=== PATIENT | female | born 1940 | race Caucasian/White ===

== ENCOUNTER 2018-02-28 08:43 | Day surgery (SDC) | payer MEDICARE ==
[~2018-02-28 08:43] MED LIST: ALPR.25 PO; ATEN-100 PO; CLOP75TA PO; ECOT81TA2 PO; IMIT100T PO; LEVO50TA4 PO; LISI30TA44 PO; MAXZTAB PO; MEVA40TA PO
[2018-02-28] MEDS ORDERED: ceFAZolin 2 GM in NS 100 ML IV SCH (09:15)
[2018-02-28] MEDS ORDERED: POVIDONE IODINE 5% (ANTISEPSIS KIT) 4 APPLICATIONS EACH NARE SCH (09:15)
[2018-02-28] MEDS ORDERED: MUPIROCIN 2% OINT 1 APPLIC/GM SYR NASAL SCH (09:15)
[2018-02-28] MEDS ORDERED: CHLORHEXIDINE GLUCONATE 2 % 1 PACK (2 CLOTHS) TOPICAL SCH (09:15)
[2018-02-28] MEDS ORDERED: LOVA40TA PO (09:17)
[2018-02-28] MEDS ORDERED: LISI30TA4 PO (09:17)
[2018-02-28] MEDS ORDERED: ATEN25TA PO (09:17)
[2018-02-28] MEDS ORDERED: TRIA37.5 (09:17)
[2018-02-28] MEDS ORDERED: LEVO50TA53 PO (09:17)
[2018-02-28] MEDS ORDERED: ASPI-516 CHEW (09:17)
[2018-02-28] MEDS ORDERED: ALPR0.25 PO (09:17)
[2018-02-28] MEDS ORDERED: SUMA100T2 PO (09:17)
[2018-02-28] MEDS ORDERED: COZA100T PO (09:17)
[2018-02-28] MEDS ORDERED: CLOP75TA PO (09:17)
[2018-02-28] MEDS ORDERED: LIDOCAINE HCL 2% 50 ML VIAL ONE (09:18)
[2018-02-28] MEDS ORDERED: MIDAZOLAM HCL 5 MG/ML VIAL (1 ML) ONE (09:58)
--- NOTE | 2018-02-28 12:19 | MA ---
cc: Conner Mayes MD DATE: 02/28/2018 PROCEDURE PERFORMED: Implantation of a Biotronik loop recorder. INDICATION: Recurrent unexplained syncope. OPERATIVE NOTES: The patient was brought to the DOC unit in a fasting state after having signed informed consent. The left upper chest and left parasternal regions were prepped and draped as per policy. The left parasternal region was anesthetized with 1% lidocaine. An approximately 1.5 cm incision was made perpendicular to the left sternal border, approximately 2 fingerbreadths from the left sternal border. A Biotronik monitor loop recorder was implanted as per protocol. The small incision was closed using 3-0 Vicryl interrupted stitches in a single layer to close the subcutaneous tissue and then Steri-Strips to close the subcuticular tissue. There were no apparent, immediate complications. The patient tolerated the procedure well. CONCLUSIONS: Successful implantation of a loop recorder using a Biotronik BioMonitor device. MD RAMA Chen/TRINA , 12:03 PM , 12:18 PM MICHELLE
== END 2018-02-28 11:59 | disposition home or self-care (01) ==
LOC: HDIC 08:43 → HDOC 08:43
PROVIDERS: ATTEND Internal Medicine Cardiovascular Disease
DX: R55 Syncope and collapse (principal); I65.29 Occlusion and stenosis of unspecified carotid artery; I10 Essential (primary) hypertension; I25.10 Atherosclerotic heart disease of native coronary artery without angina pectoris; E78.5 Hyperlipidemia, unspecified; Z79.82 Long term (current) use of aspirin
CPT/HCPCS: 33282; C1764; J0690; J2250

== ENCOUNTER 2018-03-09 11:15 | Day surgery (SDC) | payer MEDICARE ==
[~2018-03-09] VITALS: Ht 154.9 cm; Wt 69.9 kg
[2018-03-09] VITALS (13 sets, daily range): BP systolic 118–216; BP diastolic 67–98; PULSE 58–77; RESP 16–18; TEMP 98.5; O2SAT 94–98
[~2018-03-09 11:15] MED LIST changes: -ALPR.25 PO; +ALPR0.25 PO; +ASPI-516 CHEW; -ATEN-100 PO; +ATEN25TA PO; +COZA100T PO; -ECOT81TA2 PO; -IMIT100T PO; -LEVO50TA4 PO; +LEVO50TA53 PO; +LISI30TA4 PO; -LISI30TA44 PO; +LOVA40TA PO; -MAXZTAB PO; -MEVA40TA PO; +SUMA100T2 PO; +TRIA37.5
[2018-03-09 11:58] LABS: AUTOMATED NEUTROPHIL # 2.2 TH/MM3 (1.8-7.7); BASOPHIL % 0.6 % (0.0-2.0); EOSINOPHIL # 0.2 TH/MM3 (0-0.4); EOSINOPHIL % 3.2 % (0.0-4.0); HEMATOCRIT 41.3 % (35.0-46.0); HEMOGLOBIN 13.8 GM/DL (11.6-15.3); LYMPH % 43.4 % (9.0-44.0); LYMPHOCYTE # 2.2 TH/MM3 (1.0-4.8); MEAN CELL VOLUME 90.2 FL (80.0-100.0); MEAN CORPUSCULAR HEMOGLOBIN 30.2 PG (27.0-34.0); MEAN CORPUSCULAR HGB CONC 33.5 % (32.0-36.0); MEAN PLATELET VOLUME 7.3 FL (7.0-11.0); MONO % 9.8 % (0.0-8.0); MONOCYTE # 0.5 TH/MM3 (0-0.9); PLATELET COUNT 268 TH/MM3 (150-450); RED BLOOD COUNT 4.58 MIL/MM3 (4.00-5.30); RED CELL DISTRIBUTION WIDTH 13.8 % (11.6-17.2); WHITE BLOOD COUNT 5.1 TH/MM3 (4.0-11.0)
[2018-03-09] MEDS ORDERED: PHENYLEPH/NS 1000 MCG/10 ML SYR IV ONE (12:00)
[2018-03-09] MEDS ORDERED: PROPOFOL 200 MG/20 ML AMP IV ONE (12:00)
[2018-03-09] MEDS ORDERED: GLYCOPYRROLATE 1 MG/5 ML SYRINGE IV PUSH ONE (12:00)
[2018-03-09 12:07] LABS: INTERNATIONAL NORMALIZED RATIO 1.1 RATIO; PROTHROMBIN TIME - PATIENT 10.7 SEC (9.8-11.6)
[2018-03-09 12:19] LABS: BICARBONATE 32.5 MEQ/L (21.0-32.0); CALCIUM 9.2 MG/DL (8.5-10.1); CREATININE 0.94 MG/DL (0.50-1.00)
[2018-03-09] MEDS ORDERED: VITA100T65 PO (12:19)
[2018-03-09] MEDS ORDERED: VITA250C3 CHEW (12:19)
[2018-03-09] MEDS ORDERED: MULTTAB67 PO (12:19)
[2018-03-09] MEDS ORDERED: CALCTAB98 PO (12:19)
[2018-03-09] MEDS ORDERED: OMEGCAP PO (12:19)
[2018-03-09] MEDS: NS 1000 ML IV SCH ×2 (13:00→18:03)
[2018-03-09] MEDS ORDERED: CHLORHEXIDINE GLUCONATE 2 % 1 PACK (2 CLOTHS) TOPICAL SCH (13:15)
[2018-03-09] MEDS ORDERED: MUPIROCIN 2% OINT 1 APPLIC/GM SYR NASAL SCH (13:15)
[2018-03-09] MEDS ORDERED: CHLORHEXIDINE GLUCONATE 2 % 1 PACK (2 CLOTHS) TOPICAL PRN (13:15)
[2018-03-09] MEDS ORDERED: POVIDONE IODINE 5% (ANTISEPSIS KIT) 4 APPLICATIONS EACH NARE PRN (13:15)
[2018-03-09] MEDS ORDERED: ceFAZolin 2 GM PREMIX 50 ML IV SCH (13:15)
[2018-03-09] MEDS ORDERED: POVIDONE IODINE 5% (ANTISEPSIS KIT) 4 APPLICATIONS EACH NARE SCH (13:15)
[2018-03-09] MEDS ORDERED: VANCOMYCIN 1000 MG/NS 250 ML IV SCH ×2 (13:15)
[2018-03-09] MEDS ORDERED: SODIUM CHLORID 0.9% 500 ML IV PRN (13:15)
[2018-03-09] MEDS ORDERED: LACTATED RINGER'S 1000 ML IV PRN (13:15)
[2018-03-09] MEDS ORDERED: LIDOCAINE HCL 2% 20 ML VIAL ONE (13:35)
[2018-03-09] MEDS ORDERED: ALPRAZolam 0.25 MG TAB PO PRN (15:00)
[2018-03-09] MEDS ORDERED: traMADol HCL 50 MG TAB PO PRN (15:00)
--- NOTE | 2018-03-09 15:08 | CATHPROC ---
[facility] [place] HIS Report Study Information Study Number Admission Scheduled Start Study Start [id number] Mar 09 2018 11:15AM 03/09/2018 Mar 09 2018 1:22PM [place] [facility] Cardiac Pacer/ICD Admit Source Facility Department Other [facility] - [facility] [facility] Physician and Clinical Staff Initial MD Mayes, Conner Welding Robot Operator Shalonda Dumas RN Other Anesthesia, CLAIMS SUPERVISOR Recorder Heather Felix ,DESIREEN Scrub Jorge, Lizbet,TRADE ECONOMIST TECH2 Procedures Performed Procedure Lead Insertion Equipment Time Rn Clinical Trials Description Size Mfg Part Number Used/Scraped 14:08 BIOTRONIK LEAD, SOLIA 60 PRO MRI * [id number] Used 14:19 BIOTRONIK LEAD, SOLIA 60 53 PRO MRI * [id number] Used PACEMAKER, ENDORA 8 DR-T PRO 14:28 BIOTRONIK DDDR [id number] Used MRI [id number] 13:35 MEDLINE INDUSTRIES SUTURE, STRIP PLUS 1/2" * Used *[id number] 13:35 MEDLINE PACER ADHESIVE, MASTISOL 2/3CC 2/3CC 0523-48 Used 13:35 MEDLINE PACER NAVARRO, LIMB * 2530 *[id number] Used [id number] 13:35 MEDLINE PACER PACK, PACER CUSTOM * Used *[id number] 13:35 MEDLINE PACER PEN, SKIN DUAL W/ RULER * Used *[id number] 13:35 Indicative Software MEDICAL PACER SAFE SHEATH, FR7, 13CM FR 7 [id number] Used 13:35 Indicative Software MEDICAL PACER SAFE SHEATH, FR7, 13CM FR 7 [id number] Used 14:24 Indicative Software MEDICAL PACER SAFE SHEATH, LONG, FR7, 25CM FR 7 [id number] Used 13:40 Needle Sponge Count 2 22 Used 13:40 Needle Sponge Count 30 1 Used 13:40 Needle Sponge Count 4 4 Used 14:44 Needle Sponge Count 5 5 Used [id number] *[id number] SUTURE, 3-0 VICRYL [SH] ([id number]) SUTURE, 3-0 VICRYL [SH] ([id number]) SUTURE, 4-0 MONOCRYL [PS2] (Y496G) [id number] 13:35 [employer],WARM AIR CCL * Used *[id number] [facility] PAD, ELECTROSURGICAL 13:35 * [id number] *[id number] Used SURGICAL GROUNDING ORANGE [id number] 13:35 [employer] DMITRI. / * Used *75691 Equipment Model, Serial, Lot Number and Expiration Data Description Model Number Serial Number Lot Number Expiration Date LEAD, SOLIA 60 PRO MRI [id number] 09-20-2019 LEAD, SOLIA 60 53 PRO MRI [id number] 10/20/2019 PACEMAKER, ENDORA 8 DR-T PRO [id number] 02-18-2019 MRI History: Allergies Allergy Reaction imipramine amlodipine metoprolol diltiazem Labs Hgb (g/dl) Hct (%) RBC (MIL/MM3) WBC (l/cumm) Platelets (thousands) 11.60-17.00 35.00-51.00 4.00-5.90 4.00-11.00 150.00-450.00 13.0 41 4.6 5.1 268 Glucose (mg/dl) BUN (mg/dl) Creatinine (mg/dl) BUN:Creatinine (1:x) 74.00-106.00 7.00-18.00 0.50-1.30 10.00-20.00 88 17 0.9 18.9 Na (meq/l) K (meq/l) 136.00-145.00 3.50-5.10 138 3.8 INR (PTT:PT) 0.90-1.10 1.1 CPK-MB (ng/ML) 0.50-3.60 Not Drawn Medication Medication Total Dose (Bolus/Oral) Medication Total Dosage/Unit 2% XYLOCAINE 10 mL Medications (Bolus/Oral) Medication Time Given Dosage/Unit Administered By Reason 2% XYLOCAINE 03/09/2018 2:02:50 PM 10 mL Conner Mayes 10 mL 2% XYLOCAINE given in lab by Conner Mayes in Left chest via Subcutaneous. Ordered by America Mayes. Medication (Drip) Medication Time Given Dosage/Unit Concentration/Unit Diluent (ml) Solution ANCEF 03/09/2018 1:40:23 PM 2 g 2 g ANCEF given in lab by CARISSA Blas in Right Antecubital via Peripheral IV. Ordered by Conner Mayes. IV Solutions 03/09/2018 1:25:43 PM 50 mL (IV) NaCl .9 IV Solutions given in lab by Heather Felix BSN in Right Antecubital via Peripheral IV. Pump/Dr ip Flow using NaCl .9. Ordered by Conner Mayes. VANCOMYCIN DRIP 03/09/2018 1:40:38 PM 1 g 1 g VANCOMYCIN DRIP given in lab by CARISSA Blas in Right Antecubital via Peripheral IV. Ordered by Conner Mayes. Initial Case Assessment Cardiovascular HR NIBP 66 202/88 Edema Present Skin color Skin None Normal Warm Dry Circulatory - Right Pulses Dorsalis Pedis 2 Scale (0,1,2,3,4,d) Circulatory - Left Pulses Dorsalis Pedis 2 Scale (0,1,2,3,4,d) Circulatory - Lower Extremities Color Lower Right Color Lower Left Normal Normal Neurological State Oriented to time-place- Alert Moves all extremities person Respiration - General Respiration Rate SpO2 (%) (B/min) 12 91 Chronological Log Time Study Chronological Log 13:20:23 Patient arrived via Bed. 13:20:24 Patient Name, D.O.B, / Armband Verified By R.N. 13:20:25 Consent signed by the physician and the patient and verified by the [employer] Project [facility] staff. 13:20:26 Pre-op and post- op instructions given; patient acknowledges understanding of instructions. 13:20:33 Anesthesia at bedside. Assumes care of patient. 13:21:00 Patient has been NPO for Less than 6Hrs. 13:22:14 Verbal Stimulation=2 Physical Stimulation=2 Airway=2 Respiration=2 TOTAL=8. (0=absent, 1=li mited, 2=present) 13:22:52 Patient Warmer Placed on the Table. 13:22:53 Disposable Defibrillator Pads Placed On Patient. 13:22:54 Tessa Prominences Protected 13:22:58 A # 20 IV was noted in the Forearm (right). Grade = 0 13:23:07 A # 20 IV was noted in the Antecubital (right). Grade = 0 IV Solutions given in lab by Heather Felix BSN in Right Antecubital via Peripheral IV. P ump/Drip Flow using 13:25:43 NaCl .9. Ordered by Conner Mayes. 13:26:42 History and physical on the chart or being dictated. Assessment: Initial Case, HR=66 BPM, ZZHD=412/88 mmhg, Edema=None, Color=Normal, Skin = Warm, D ry Right Pulses: Richie Ped=2 Left Pulses: Richie Ped=2 13:26:56 Lower Right Extremities: Color=Normal Lower Left Extremities: Color=Normal Neurological: State=Alert, Ox3, WARD Respiration: Resp=12 B/min, SpO2=91 % 13:32:43 Table restraints applied according to hospital policy 13:36:08 Disposable Defibrillator Pads Placed On Patient. 13:36:09 Bovie ground pad applied to: right thigh 13:36:39 Verbal Stimulation=2 Physical Stimulation=2 Airway=2 Respiration=2 TOTAL=8. (0=absent, 1=li mited, 2=present) 13:36:51 2% CHLORHEXIDINE GLUCONATE WASH AND NASAL SWIPE DONE PRIOR TO PROCEDURE. 13:37:19 Bruising noted on patient's chest First Sponge And Instrument Count Done by Lizbet Patel, TRADE ECONOMIST TECH2. 13:39:22 Hypo's: 4, Sponges: 30, Bovie/scratch: 2 Sutures: 6, Blades: 2, Instruments: 26, Syveck Patches: 0 13:40:23 2 g ANCEF given in lab by Anesthesia, CLAIMS SUPERVISOR in Right Antecubital via Peripheral IV. Ordered by Conner Mayes. 1 g VANCOMYCIN DRIP given in lab by Anesthesia, CLAIMS SUPERVISOR in Right Antecubital via Peripheral IV. Or dered by Gerber 13:40:38 Conner. 13:40:42 Reference ECG taken 13:51:08 Bilateral Upper Chest Prepped Times Two. 13:53:23 paged 13:58:58 MD arrived. Time Out. Correct patient, procedure, procedure equipment, site and side verified with physicia n present. Time 14:02:16 concurred by MD, individual staff and CLAIMS SUPERVISOR. 14:02:28 Case Start 14:02:50 10 mL 2% XYLOCAINE given in lab by Conner Mayes in Left chest via Subcutaneous. Ordered by Conner Mayes. 14:04:25 Surgical Incision Made. 14:05:01 A pocket was created at the L Upper Chest. 14:06:12 Vascular access was obtained in the Subclav. Vein (Lft. 14:08:16 A SAFE SHEATH, FR7, 13CM FR 7 was advanced into the Subclav. Vein (Lft using the Percutaneo us technique. 14:08:27 A LEAD, SOLIA 60 PRO MRI * was inserted and positioned in the RV. 14:14:01 Lead placement verified under fluoroscopy 14:14:04 The RV lead impedance and threshold being tested. 14:16:45 The RV lead was sutured to the fascia. 14:18:07 Vascular access was obtained in the Subclav. Vein (Lft. 14:19:12 A SAFE SHEATH, FR7, 13CM FR 7 was advanced into the Subclav. Vein (Lft using the Percutaneo us technique. 14:19:41 A LEAD, SOLIA 60 53 PRO MRI * was inserted and positioned in the RA. 14:22:23 lead removed A SAFE SHEATH, LONG, FR7, 25CM FR 7 was exchanged in the Subclav. Vein (Lft. This was necessary in order for 14:23:50 catheter support. 14:25:19 A LEAD, SOLIA 60 53 PRO MRI * was inserted and positioned in the RA. 14:25:50 Lead placement verified under fluoroscopy 14:26:40 The Atrial lead impedance and threshold is being tested. 14:28:06 The Atrial lead was sutured to the fascia. 14:32:01 A PACEMAKER, ENDORA 8 DR-T PRO MRI DDDR was connected and placed in the pocket. 14:35:26 The pocket is being closed. Second Sponge And Instrument Count Done by Lzibet Patel, TRADE ECONOMIST TECH2. 14:37:32 Hypo's: 4, Sponges: 30, Bovie/scratch: 2 Sutures: 6, Blades: 2, Instruments: ~INSTRU~, Syveck Patches: 0 14:41:42 Loop Recorder Removed. 14:42:47 A PPM Implant . (Dual) 14:52:39 The pocket was closed. 14:53:39 Case End 14:55:55 loop incision sutured Final Sponge And Instrument Count Done by Lizbet Patel, TRADE ECONOMIST TECH2. 14:56:05 Hypo's: 4, Sponges: 30, Bovie/scratch: 2 Sutures: 6, Blades: 2, Instruments: ~INSTRU~, Syveck Patches: 0 14:56:10 Steri-strips and a sterile dressing applied to site. 14:56:43 No case complications noted. 14:56:43 Implant Procedure was performed. 14:56:51 Implantable Device card placed in patient's chart. 14:58:44 Cine recording checked. 14:58:58 Bedside Report will be given. 15:07:55 Patient moved to stretcher 15:08:34 A sling was placed on the affected arm. End Study - Contrast Media Used In Study Contrast Total Opened (mL) Total Used (mL) Total Wasted (mL) Unspecified 0 0 0 End Study - Maximum Contrast Load Max Contrast Load (mL) 382.8 End Study - Radiation Exposure Fluoro Time (minutes) 5.6 End Study - Patient Disposition Complications Transferred To No [facility]
[2018-03-09] MEDS ORDERED: MIDAZOLAM HCL 2 MG/2 ML VIAL ONE (15:17)
--- NOTE | 2018-03-09 15:21 | MP ---
cc: Conner Mayes MD DATE OF OPERATION: 03/09/2018 PROCEDURE PERFORMED: Dual chamber permanent pacemaker implantation via the left subclavian vein, explant of loop recorder from left parasternal area. INDICATIONS: Symptomatic bradycardia, sick sinus syndrome, prolonged asystole demonstrated on loop recorder monitoring. OPERATIVE NOTES: The patient was brought to the operating suite in a fasting state after having signed informed consent. The left upper chest was prepped and draped as per policy and anesthetized with 1% lidocaine. A transverse incision was made inferior to the left clavicle and using blunt dissection, a subcutaneous pocket was formed down to the pectoralis fascia. Using modified Seldinger technique, central venous access was obtained twice via the left subclavian vein. Over the more lateral guidewire, a 7-Chadian sheath was placed and through this sheath, a ventricular active fixation lead was introduced and its tip positioned in a somewhat septal position where good current of injury, stimulation threshold (0.8 volts) and sensitivity (9.9 millivolts) were demonstrated. This lead was secured into place using 2-0 silk ties down to the pectoralis fascia. The ventricular lead was initially placed in a more apical position where good current of injury, stimulation threshold and sensitivity were demonstrated. However, the impedance was higher than acceptable (about 1100 ohms). Over the remaining wire, another 7-Chadian sheath was placed and through this sheath, an atrial active fixation lead was introduced and its tip positioned in the right atrial appendage where a good current of injury, stimulation threshold (0.6 volts) and sensitivity (4.0 millivolts) were demonstrated. This lead was secured into place using 2-0 silk ties down to the pectoralis fascia. The leads were then connected to the pacemaker generator, which is a Biotronik Edora model. The leads and the generator were placed into the subcutaneous pocket, which was closed using 3-0 Vicryl interrupted stitches in 2-3 layers to close the subcutaneous tissue and then 4-0 Monocryl running stitch to close the subcuticular tissue. Overlapping Steri-Strips and a dressing were applied. A transverse incision was made over the loop recorder and the loop recorder was removed without difficulty. The small incision was closed using a single stitch of 3-0 Vicryl to close the subcutaneous tissue and then Steri-Strips over the subcuticular tissue. There were no apparent, immediate complications. A portable chest x-ray is pending at the time of this dictation. CONCLUSION: Successful dual-chamber permanent pacemaker implantation via the left subclavian vein using a FlexionroniVasoNova Edora pacemaker generator, status post explantation of a loop recorder. MD RAMA Chen/TRINA , 02:47 PM , 03:20 PM MICHELLE
--- NOTE | 2018-03-09 16:05 | RADRPT ---
EXAM DATE/TIME: 03/09/2018 15:20 [place] COMPARISON: CHEST SINGLE AP, April 11, 2015, 13:45. INDICATIONS : Pneumothorax. MEDICAL HISTORY : Cardiovascular disease. SURGICAL HISTORY : . ENCOUNTER: Initial ACUITY: 1 day PAIN SCORE: 0/10 LOCATION: Bilateral chest FINDINGS: Interval placement of dual-lead with leads projecting over the right atrium and right ventricle. Ther e is no significant pneumothorax. No new focal pleural or parenchymal opacities. Cardiomediastinal co ntours are stable given differences in technique. Remainder of the exam is unchanged. CONCLUSION: 1. Dual-lead pacemaker in place with leads projecting over the right atrium and ventricle. 2. No pneumothorax. Lopez Mosqueda MD on March 09, 2018 at 16:01 Board Certified Radiologist. This report was verified electronically.
[2018-03-09] MEDS ORDERED: BENZOCAINE 20% ORAL SPR 60 ML CAN OROPHARYNG PRN (19:15)
[2018-03-09] MEDS ORDERED: LABETALOL HCL 100 MG/20 ML VIAL IV ONE (19:15)
[2018-03-10] VITALS: PULSE 62; PULSE 64
[2018-03-10 00:15] VITALS: O2SAT 96
[2018-03-10 01:00] VITALS: PULSE 64
[2018-03-10 02:00] VITALS: PULSE 62
[2018-03-10] MEDS ORDERED: VANCOMYCIN INJ 1,000 MG in SODIUM CHLOR 0.9% 250 ML INJ 250 ML IV SCH (03:00)
[2018-03-10] MEDS ORDERED: LEVOTHYROXINE SODIUM 50 MCG TAB PO SCH (06:00)
--- NOTE | 2018-03-10 07:31 | PD.CARD.PN ---
Subjective Subjective Remarks No incisional pain, dyspnea, dizziness. Objective Medications Item Value Date Time Aspirin 81 mg 03/10/18 0900 (Aspirin Chew) DAILY/CHEW Atenolol 25 mg 03/10/18 0900 (Tenormin) DAILY/PO Losartan Potassium 100 mg 03/10/18 0900 (Cozaar) DAILY/PO Pravastatin Sodium 40 mg 03/10/18 0900 (Pravachol) DAILY/PO Triamterene/HCTZ 1 tab 03/10/18 0900 (Maxzide 37.5-25 DAILY/PO Mg) Lisinopril 30 mg 03/10/18 0900 (Prinivil) DAILY/PO Current Medications Medications (Trade) Dose Ordered Sig/Jacob Route Start Time Stop Time Status Last Admin Lactated Ringer's 1,000 ml @ 30 mls/hr Q24H PRN IV 03/09/18 13:15 03/12/18 13:14 Sodium Chloride 500 ml @ 30 mls/hr [id number] PRN IV 03/09/18 13:15 03/12/18 13:14 (Betadine 5% Antisepsis Kit) 1 applic INVESTIGATIVE WRITER PRN EACH NARE 03/09/18 13:15 03/12/18 13:14 03/09/18 15:57 (Chlorhexidine 2% Cloth) 3 pack INVESTIGATIVE WRITER PRN TOPICAL 03/09/18 13:15 03/12/18 13:14 03/09/18 15:56 Sodium Chloride 1,000 ml @ 30 mls/hr Q24H IV 03/09/18 13:00 03/09/18 18:03 Cefazolin Sodium/ Dextrose 50 ml @ 100 mls/hr INVESTIGATIVE WRITER IV 03/09/18 13:15 03/12/18 13:14 03/09/18 13:40 Vancomycin HCl 1000 mg/Sodium Chloride 250 ml @ 250 mls/hr INVESTIGATIVE WRITER IV 03/09/18 13:15 03/12/18 13:14 03/09/18 13:40 (Betadine 5% Antisepsis Kit) 2 applic INVESTIGATIVE WRITER EACH NARE 03/09/18 13:15 03/12/18 13:14 (Bactroban Nasal 2% Oint) 1 applic INVESTIGATIVE WRITER NASAL 03/09/18 13:15 03/12/18 13:14 (Chlorhexidine 2% Cloth) 3 pack INVESTIGATIVE WRITER TOPICAL 03/09/18 13:15 03/12/18 13:14 (Xanax) 0.25 mg Q4H PRN PO 03/09/18 15:00 03/09/18 21:59 (Aspirin Chew) 81 mg DAILY CHEW 03/10/18 09:00 (Tenormin) 25 mg DAILY PO 03/10/18 09:00 (Synthroid) 50 mcg DAILY@0600 PO 03/10/18 06:00 03/10/18 06:10 (Cozaar) 100 mg DAILY PO 03/10/18 09:00 (Pravachol) 40 mg DAILY PO 03/10/18 09:00 (Maxzide 37.5-25 Mg) 1 tab DAILY PO 03/10/18 09:00 (Prinivil) 30 mg DAILY PO 03/10/18 09:00 (Ultram) 50 mg Q6HR PRN PO 03/09/18 15:00 03/09/18 15:57 (Hurricaine 20% Oral Spr) 1 spray Q2H PRN OROPHARYNG 03/09/18 19:15 03/09/18 21:59 Vital Signs / I&O Vital Signs Date Time Temp Pulse Resp B/P (MAP) Pulse Ox O2 Delivery O2 Flow Rate FiO2 03/10/18 02:00 62 03/10/18 01:00 64 03/10/18 00:15 96 21 03/10/18 00:00 62 03/10/18 00:00 64 03/09/18 23:00 66 03/09/18 22:00 68 03/09/18 21:06 77 03/09/18 20:00 69 16 118/67 (84) 94 03/09/18 19:00 66 03/09/18 19:00 181/95 (123) 03/09/18 18:50 203/83 (123) 03/09/18 18:45 211/98 (135) 03/09/18 18:00 64 137/79 (98) 95 03/09/18 17:30 63 133/75 (94) 95 03/09/18 17:13 64 141/88 (105) 97 03/09/18 16:50 216/94 (134) 03/09/18 16:22 62 172/92 (118) 98 03/09/18 11:59 98.5 58 18 196/87 (123) 97 I/O 03/09/18 03/09/18 03/09/18 03/10/18 03/10/18 03/10/18 07:00 15:00 23:00 07:00 15:00 23:00 Intake Total 240 ml 240 ml Output Total 350 ml Balance 240 ml -110 ml Intake Oral 240 ml 240 ml Output Urine Total 350 ml Physical Exam Pacer site clean, dry, intact, no hematoma or tenderness. Laboratory Laboratory Tests Test 03/09/18 11:45 White Blood Count 5.1 TH/MM3 Red Blood Count 4.58 MIL/MM3 Hemoglobin 13.8 GM/DL Hematocrit 41.3 % Mean Corpuscular Volume 90.2 FL Mean Corpuscular Hemoglobin 30.2 PG Mean Corpuscular Hemoglobin Concent 33.5 % Red Cell Distribution Width 13.8 % Platelet Count 268 TH/MM3 Mean Platelet Volume 7.3 FL Neutrophils (%) (Auto) 43.0 % Lymphocytes (%) (Auto) 43.4 % Monocytes (%) (Auto) 9.8 % Eosinophils (%) (Auto) 3.2 % Basophils (%) (Auto) 0.6 % Neutrophils # (Auto) 2.2 TH/MM3 Lymphocytes # (Auto) 2.2 TH/MM3 Monocytes # (Auto) 0.5 TH/MM3 Eosinophils # (Auto) 0.2 TH/MM3 Basophils # (Auto) 0.0 TH/MM3 CBC Comment DIFF FINAL Differential Comment Prothrombin Time 10.7 SEC Prothromb Time International Ratio 1.1 RATIO Activated Partial Thromboplast Time 26.8 SEC Blood Urea Nitrogen 17 MG/DL Creatinine 0.94 MG/DL Random Glucose 88 MG/DL Calcium Level 9.2 MG/DL Sodium Level 138 MEQ/L Potassium Level 3.8 MEQ/L Chloride Level 102 MEQ/L Carbon Dioxide Level 32.5 MEQ/L Anion Gap 4 MEQ/L Estimat Glomerular Filtration Rate 58 ML/MIN Imaging Last 24 hours Impressions Chest X-Ray 03/09/18 [id number] Signed Impressions: Service Date/Time: February 15:20 - CONCLUSION: 1. Dual-lead pacemaker in place with leads projecting over the right atrium and ventricle. 2. No pneumothorax. Lopez Mosqueda MD Assessment and Plan Problem List: (1) Status post placement of cardiac pacemaker ICD Codes: Z95.0 - Presence of cardiac pacemaker Status: Acute Plan: Stable overnight. Pacer site OK. Pacer re-interrogation shows stable, good pacing parameters. To discharge today, same home medications plus Levaquin , one week f/u. (2) HTN (hypertension) ICD Codes: I10 - HTN (hypertension) Status: Chronic Plan: Hypertensive last night. Now normal BP. Monitor as outpatient. (3) CAD (coronary artery disease) ICD Codes: I25.10 - CAD (coronary artery disease) Status: Acute Plan: Stable. No angina symptoms. Code Status full code Discussed Condition With patient Problem Qualifiers (1) HTN (hypertension): Qualified Codes: I10 - Essential (primary) hypertension (2) CAD (coronary artery disease): Qualified Codes: I25.10 - Atherosclerotic heart disease of [place] coronary artery without angina pectoris Conner Mayes MD Mar 10, 2018 07:31
[2018-03-10] MEDS ORDERED: LEVA500T33 PO (07:34)
[2018-03-10] MEDS ORDERED: ASPIRIN 81 MG CHEW TAB CHEW SCH (09:00)
[2018-03-10] MEDS ORDERED: TRIAMTERENE/HCTZ 37.5 MG/25 MG TAB PO SCH (09:00)
[2018-03-10] MEDS ORDERED: ATENOLOL 25 MG TAB PO SCH (09:00)
[2018-03-10] MEDS ORDERED: PRAVASTATIN SOD 40 MG TAB PO SCH (09:00)
[2018-03-10] MEDS ORDERED: LISINOPRIL 10 MG TAB PO SCH (09:00)
[2018-03-10] MEDS ORDERED: LOSARTAN 50 MG TAB PO SCH (09:00)
--- NOTE | 2018-03-11 09:24 | EKG ---
Date Performed: 03/09/2018 Time Performed: 11:58:14 PTAGE: 77 years EKG: Sinus bradycardia. Inferior infarct - age undetermined Low QRS voltages in precordial leads Abnormal ECG NO PREVIOUS TRACING DOCTOR: Edson Aranda Interpretating Date/Time 03/11/2018 09:18:06
== END 2018-03-10 10:10 | disposition home or self-care (01) ==
LOC: HDOC 11:15 → HDIC 11:16 → HCIS 16:17 → HDOC 03-10 10:10
PROVIDERS: ATTEND Internal Medicine Cardiovascular Disease
DX: I49.5 Sick sinus syndrome (principal); I65.23 Occlusion and stenosis of bilateral carotid arteries; I10 Essential (primary) hypertension; I25.10 Atherosclerotic heart disease of native coronary artery without angina pectoris; R42 Dizziness and giddiness; M06.9 Rheumatoid arthritis, unspecified; E78.5 Hyperlipidemia, unspecified; Z86.73 Personal history of transient ischemic attack (TIA), and cerebral infarction without residual deficits; Z79.82 Long term (current) use of aspirin
CPT/HCPCS: 00530; 33208; 33284; 71045; 80048; 85025; 85610; 85730; 93005; C1785; C1898; J0690; J2250; J2370; J3010; J3370; J7030; J7050